=== PATIENT | male | born 1990 | race Two or more races ===

== ENCOUNTER 2023-09-04 16:23 | Outpatient (CLI) | payer OTHER ==
[2023-09-04 16:35] LABS: URINE APPEARANCE Turbid; URINE BILIRRUBIN Negative (NEGATIVE); URINE BLOOD Negative; URINE COLOR Yellow; URINE GLUCOSE Negative (NEGATIVE); URINE LEUKOCYTE Negative; URINE NITRATE Negative; URINE PROTEIN Negative (NEGATIVE); URINE UROBILINOGEN 0.2 E.U./dl
[2023-09-04 16:42] LABS: URINE BACTERIA 2.5 uL (0.0-1933); URINE EPITHELIAL CELLS 0.1 uL (0.0-38.8); URINE RBC 1.2 uL (0.0-20.8); URINE WBC 1.2 uL (0.0-23.2)
[2023-09-04 17:28] LABS: ALBUMIN 4.1 gm/dL (3.4-5.0); BILIRUBIN TOTAL 0.35 mg/dL (0.3-1.2); CREATININE SERUM 0.91 mg/dL (0.70-1.30); GFR 95.37; GLOBULINA 3.5 G/DL (2.4-3.5); POTASSIUM 3.92 mEq/L (3.5-5.1); TOTAL PROTEIN 7.6 gm/dL (6.4-8.2)
== END 2023-09-04 23:00 | disposition home or self-care (01) ==
LOC: LAB 16:23
PROVIDERS: ATTEND Urology
DX: N20.0 Calculus of kidney (principal)